=== PATIENT | male | born 1945 | race Caucasian/White ===

== ENCOUNTER → 2017-04-03 | Outpatient (CLI) | payer MEDICARE ==
--- NOTE | 2017-04-03 10:09 | US ---
EXAMINATION TYPE: US abdomen complete DATE OF EXAM: 04/03/2017 9:35 AM COMPARISON: NONE CLINICAL HISTORY: Periumbilical abd pain R10.33. NPO, colon resection in 2006 EXAM MEASUREMENTS: Liver Length: 12.7 cm Gallbladder Wall: 0.2 cm CHD: 0.4 cm Spleen: 11.9 cm Right Kidney: 11.5 x 4.9 x 5.6 cm Left Kidney: 11.2 x 4.7 x 4.7 cm Pancreas: Obscured by bowel gas Liver: wnl as visualized, limited by bowel gas Gallbladder: wnl Evidence for sonographic Up's sign: neg CBD: wnl Spleen: wnl Right Kidney: wnl Left Kidney: wnl Upper IVC: seen Abd Aorta: Proximal not seen due to overlying bowel gas IMPRESSION: 1. No acute process as visualized.
== END | disposition home or self-care (01) ==
LOC: RADUSWWP 08:45
PROVIDERS: ATTEND Family Medicine
DX: R10.33 Periumbilical pain (principal)
CPT/HCPCS: 76700

== ENCOUNTER → 2017-06-19 | Outpatient (CLI) | payer MEDICARE ==
[2017-06-19 10:53] LABS: Blood Urea Nitrogen 19 mg/dL (9-20); Non-African American GFR(MDRD) >60 (>60 ml/min/1.73 sqM)
--- NOTE | 2017-06-19 12:37 | CT ---
EXAMINATION TYPE: CT abdomen pelvis w con DATE OF EXAM: 06/19/2017 COMPARISON: Ultrasound abdomen 04/03/2017 HISTORY: Lower abd pain, history of colon CA with colon resection CT DLP: 775.1 mGycm Automated exposure control for dose reduction was used. TECHNIQUE: Helical acquisition of images from the lung bases through the pelvis have been completed. CONTRAST: Performed with Oral Contrast and with IV Contrast, patient injected with 100 mL of Omnipaque 300. FINDINGS: There is some pericardial calcification. Heart is borderline enlarged. LUNG BASES: No significant abnormality is appreciated. AORTA: No significant abnormality is appreciated. Inferior vena cava filter is noted incidentally in the infrarenal location. LIVER/GB: Liver shows low attenuation possibly due to hepatocellular disease or hepatic steatosis, ga llbladder is normal. PANCREAS: There is diffuse enlargement of the pancreatic duct. At the level of the body of the pancre as near its junction with the pancreatic head there is soft tissue attenuation and the caliber change of the pancreatic duct, some suggestion of reactive change in the surrounding fat. Ill-defined abnor mal soft tissue measures approximately 3.7 cm in greatest dimension. SPLEEN: No significant abnormality is seen. ADRENALS: No significant abnormality is seen. KIDNEYS: No significant abnormality is seen. REPRODUCTIVE ORGANS: The prostate is enlarged. BOWEL: Questionable abnormal soft tissue associated with the ascending aorta colon on axial image 38 , coronal image 34. Within the mesenteric fat there are ill-defined areas of increased attenuation pr esent. Small anterior abdominal wall hernia is noted incidentally. Suspect a left inguinal hernia con taining fat. Diverticular changes associated with the sigmoid colon. FREE AIR: No Free Air visible. ASCITES: None visible. PELVIC ADENOPATHY: None visualized. RETROPERITONEAL ADENOPATHY: No Retroperitoneal Adenopathy visible. URINARY BLADDER: Bladder wall thickening may be due to chronic outlet obstruction, correlate to excl ude cystitis. OSSEOUS STRUCTURES: No significant abnormality is seen. IMPRESSION: FINDINGS COMPATIBLE WITH PANCREATIC CARCINOMA, THERE MAY BE MESENTERIC SEEDING. Possible colonic mass or abnormal soft tissue related to pancreatic primary associated with the ascending colon.
== END | disposition home or self-care (01) ==
LOC: RADCTMAIN 10:20
PROVIDERS: ATTEND Surgery
DX: R10.9 Unspecified abdominal pain (principal)
CPT/HCPCS: 82565; 84520; 74177; 36415; Q9967

== ENCOUNTER → 2017-08-30 | Outpatient (CLI) | payer MEDICARE ==
--- NOTE | 2017-08-30 14:56 | CT ---
EXAMINATION TYPE: CT ChestAbdPelvis w con DATE OF EXAM: 08/30/2017 COMPARISON: CT abdomen pelvis 06/19/2017 HISTORY: Patient has no complaints at time of service. Follow up study for known pancreatic and wilfredo l CA. CT DLP: 635.8 mGycm Automated exposure control for dose reduction was used. CONTRAST: CT scan of the chest, abdomen and pelvis is performed with Oral Contrast and with IV Contrast, patien t injected with 100 mL of Omnipaque 300. FINDINGS: LUNGS: The lungs are grossly clear, there is no concerning parenchymal mass or nodule identified. Th ere is evidence of old granulomatous disease, calcified granuloma present in the left lower lobe subp leural location. There is no pleural effusion or pneumothorax seen. The tracheobronchial tree is pat ent. MEDIASTINUM: There are no greater than 1 cm hilar or mediastinal lymph nodes. No pericardial effusi on is seen. There are coronary artery calcifications present. AORTA: No significant abnormality is seen. OTHER: Port-A-Cath is present in the right pectoral region, distal tip of the catheter via the right jugular approach extends into the superior vena cava. There is a hiatal hernia. LIVER/GB: Stable PANCREAS: Similar appearance. Distal aspect shows pancreatic ductal dilatation, soft tissue mass is p resent in the body with some surrounding scirrhous reaction. SPLEEN: No significant abnormality is seen. ADRENALS: No significant abnormality is seen. KIDNEYS: No significant abnormality is seen. REPRODUCTIVE ORGANS: Prostate is enlarged. There is an inferior impression on the urinary bladder. BOWEL: The proximal transverse colon, descending colon shows no distention. Difficult to exclude muc osal serosal lesion. The mesenteric seeding changes have progressed somewhat in the interval, the lar gest mass anterior to the proximal transverse colon measures approximately 3 cm in size increased fro m 2.5 cm. There are additional areas of new or increased abnormal increased density within the mesent nicole. Postop changes are noted to the sigmoid colon as on prior exam. FREE AIR: No Free Air visible. ASCITES: None seen. RETROPERITONEAL ADENOPATHY: No retroperitoneal adenopathy is seen. LYMPH NODES: No greater than 1 cm abdominal or pelvic lymph nodes are appreciated. URINARY BLADDER: No significant abnormality is seen. PELVIC ADENOPATHY: None visualized. OSSEOUS STRUCTURES: No significant abnormality is seen. Inferior vena cava filter is noted. IMPRESSION: Progression of mesenteric seeding of patient's tumor.
== END | disposition home or self-care (01) ==
LOC: RADPROMAIN 07:53
PROVIDERS: ATTEND Internal Medicine Hematology & Oncology
DX: C25.0 Malignant neoplasm of head of pancreas (principal); Z88.5 Allergy status to narcotic agent
CPT/HCPCS: 71260; 74177; Q9967; J1642

== ENCOUNTER → 2018-02-28 | Outpatient (CLI) | payer MEDICARE ==
[2018-02-28 11:04] LABS: Blood Urea Nitrogen 21 mg/dL (9-20)
--- NOTE | 2018-02-28 13:48 | CT ---
EXAMINATION TYPE: CT abdomen pelvis w con DATE OF EXAM: 02/28/2018 COMPARISON: 08/30/2017 HISTORY: Follow up pancreatic cancer. CT DLP: 1085 mGycm CONTRAST: CT scan of the abdomen and pelvis is performed with Oral Contrast and with IV Contrast, patient injec malick with 100 mL of Isovue 300. FINDINGS: LUNG BASES-: No visible nodule. No infiltrate. LIVER/GB: No calcified gallstones. No space occupying hepatic lesion. Biliary tree is of normal ca liber. PANCREAS: Atrophic changes of the pancreas. Cystic dilatation of the pancreatic duct. Soft tissue den sity within the body of the pancreas appears smaller than on prior study and measures approximately 1 cm versus 1.9 cm previously. SPLEEN: No splenic enlargement. No lesion seen. ADRENALS: No nodule. No thickening. KIDNEYS/BLADDER: No hydronephrosis. No nephrolithiasis. No distinct renal mass. Urinary bladder g rossly unremarkable. BOWEL: Normal appendix. Normal bowel caliber. No inflammation. GENITAL ORGANS: No gross abnormality. LYMPH NODES: No greater than 1cm abdominal or pelvic lymph nodes are appreciated. AORTA: No significant abnormality. OSSEOUS STRUCTURES: No significant abnormality is seen. OTHER: Mesenteric nodules seen previously have significantly improved. There is mild nodularity ident ified right upper quadrant although significantly diminished from prior study. IVC filter is in place . IMPRESSION: 1. Marked reduction in mesenteric seeding seen previously. 2. Pancreatic body mass persists although appears to be smaller in size.
== END ==
LOC: RADPROMAIN 10:25
PROVIDERS: ATTEND Internal Medicine Hematology & Oncology
DX: Z03.89 Encounter for observation for other suspected diseases and conditions ruled out (principal); C25.0 Malignant neoplasm of head of pancreas; Z88.5 Allergy status to narcotic agent
CPT/HCPCS: 82565; 84520; 74177; J1642; Q9967

== ENCOUNTER → 2018-04-09 | Outpatient (CLI) | payer MEDICARE ==
[2018-04-09 11:08] LABS: Blood Urea Nitrogen 27 mg/dL (9-20)
--- NOTE | 2018-04-09 12:59 | CT ---
EXAMINATION TYPE: CT ChestAbdPelvis w con DATE OF EXAM: 04/09/2018 COMPARISON: 02/28/2018 HISTORY: Pancreatic cancer CT DLP: 1478 mGycm CONTRAST: CT scan of the chest, abdomen and pelvis is performed with Oral Contrast and with IV Contrast, patien t injected with 100 ml mL of Isovue 370. CT Chest: LUNGS: The lungs are clear and free of infiltrate or atelectasis. No pulmonary nodule or mass is det ected. No pleural effusion or CT evidence of interstitial lung disease. MEDIASTINUM: Thoracic aorta is of normal caliber. The heart is enlarged. No evidence for mediastin al mass or adenopathy. HILAR STRUCTURES: No evidence for mass. No hilar adenopathy is appreciated. OTHER: No significant abnormality. CONTRAST CT ABDOMEN AND PELVIS FINDINGS: LIVER/GB: No calcified gallstones. No space occupying hepatic lesion. Biliary tree is of normal ca liber. PANCREAS: Atrophic changes of the pancreas. Cystic dilatation of the pancreatic duct. Soft tissue den sity within the body of the pancreas does not redemonstrated at this time. No new lesions seen. SPLEEN: No splenic enlargement. No lesion seen. ADRENALS: No nodule. No thickening. KIDNEYS/BLADDER: No hydronephrosis. No nephrolithiasis. No disctinct renal mass. BOWEL: Normal appendix. Normal bowel caliber. No inflammation. GENITAL ORGANS: Prostate gland enlargement noted. LYMPH NODES: No greater than 1cm abdominal or pelvic lymph nodes are appreciated. AORTA: No significant abnormality. OSSEOUS STRUCTURES: No significant abnormality is seen. OTHER: Fat-containing left inguinal hernia. No evidence for mesenteric seeding. IVC filter. IMPRESSION: 1. Pancreatic body lesion is not reproduced on today's study. Atrophic changes of the pancreas with c ystic duct dilatation identified. 2. Otherwise stable examination.
== END | disposition home or self-care (01) ==
LOC: RADPROMAIN 10:17
PROVIDERS: ATTEND Internal Medicine Hematology & Oncology
DX: K82.8 Other specified diseases of gallbladder (principal); C25.0 Malignant neoplasm of head of pancreas; D69.59 Other secondary thrombocytopenia; I82.5Z9 Chronic embolism and thrombosis of unspecified deep veins of unspecified distal lower extremity; G89.3 Neoplasm related pain (acute) (chronic); Z88.6 Allergy status to analgesic agent
CPT/HCPCS: 82565; 84520; 86301; 71260; 74177; J1642; Q9967

== ENCOUNTER → 2018-11-25 | Outpatient (CLI) | payer MEDICARE ==
[2018-11-25 11:01] LABS: Blood Urea Nitrogen 23 mg/dL (9-20)
--- NOTE | 2018-11-25 13:42 | CT ---
EXAMINATION TYPE: CT ChestAbdPelvis w con DATE OF EXAM: 11/25/2018 COMPARISON: 06/19/2017 and 04/09/2018 HISTORY: pancreatic cancer observe for mets CT DLP: 767.60 mGycm. Automated Exposure Control for Dose Reduction was Utilized. CONTRAST: CT scan of the thorax, abdomen and pelvis is performed with IV Contrast, patient injected with 100 mL of Isovue 300. FINDINGS: LUNGS: The lungs are grossly clear, there is no concerning parenchymal mass or nodule identified. M inimal dependent atelectasis is noted. There is no pleural effusion or pneumothorax seen. The trache obronchial tree is patent. MEDIASTINUM: Right-sided Mediport terminates in the superior vena cava. There are no greater than 1 c m hilar or mediastinal lymph nodes. No pericardial effusion is seen. Multifocal calcification the p ericardium may relate to prior pericarditis. Fluid attenuation is seen within the posterior mediastin um just above herniated intra-abdominal fat through the widened diaphragmatic hiatus. Moderate sauer ry artery calcifications are seen. LIVER/GB: Although the liver is diffusely slightly hypoattenuated does not meet criteria for hepatic steatosis. No cholelithiasis. No focal hepatic lesion is seen. PANCREAS: There are vague areas of hypoattenuation within the pancreatic body near the pancreatic nec k at the site of caliber change of the markedly dilated main pancreatic duct with cystic spaces, the largest in the pancreatic tail measuring 4.6 cm. However the pancreatic primary neoplasm is not well- defined. There is no discernible interval growth from the prior where the pancreatic neoplasm is also not well-defined. The fat planes between the celiac axis and its branch vessels as in the pancreatic body are not clearly defined and there appears to be at least 180 degrees encasement of the superior mesenteric vein. Haziness is seen lateral to the superior mesenteric artery on series 3 image 60. Th is is similar to the prior and may represent adenopathy. SPLEEN: No significant abnormality is seen. ADRENALS: No significant abnormality is seen. KIDNEYS: No hydronephrosis. Kidneys enhance symmetrically. BOWEL: There is a colonic anastomotic site within the sigmoid colon without proximal dilatation to [place] ggest anastomotic stricture. Few sigmoid and descending colonic diverticula are seen without pericolo kulwinder fat stranding. Moderate amount retained stool is seen throughout the colon. Small bowel is nondil ated. GENITAL ORGANS: Prostate gland is enlarged and heterogenous containing few central zone calcification s and 5.9 cm in transverse dimension with impression upon the urinary bladder. LYMPH NODES: No greater than 1cm abdominal or pelvic lymph nodes are appreciated. OSSEOUS STRUCTURES: Minimal degenerative changes of the lumbar spine are noted. There is a mild compr ession deformity of the T7 vertebral body with approximately 20% vertebral body height loss unchanged from 04/09/2018. No new suspicious osseous lesions are seen. OTHER: Inferior vena cava filter is incidentally seen. Left inguinal canal is patulous. When compared to the exam of 08/30/2017 there is complete resolution of the previously seen peritonea l carcinomatosis. IMPRESSION: 1. The primary pancreatic neoplasm is ill-defined with only a focal area of heterogeneity in the panc reatic body near the pancreatic neck. Downstream main pancreatic ductal dilatation with persistent de velopment of cystic spaces is unchanged. 2. No evidence of recurrence of the previously seen peritoneal carcinomatosis. 3. Mild T7 vertebral body compression deformities unchanged from 04/09/2018. 4. Stable probable nonenlarged 9 mm short axis lymph node adjacent to the superior mesenteric artery.
== END | disposition home or self-care (01) ==
LOC: RADPROMAIN 10:18
PROVIDERS: ATTEND Internal Medicine Hematology & Oncology
DX: C25.0 Malignant neoplasm of head of pancreas (principal); Z88.8 Allergy status to other drugs, medicaments and biological substances
CPT/HCPCS: 82565; 84520; 71260; 74177; 36415; J1642; Q9967

== ENCOUNTER → 2019-02-10 | Outpatient (CLI) | payer MEDICARE ==
[2019-02-10 08:28] LABS: Blood Urea Nitrogen 22 mg/dL (9-20)
--- NOTE | 2019-02-10 12:53 | CT ---
EXAMINATION TYPE: CT ChestAbdPelvis w con DATE OF EXAM: 02/10/2019 COMPARISON: 11/25/2018 and 04/09/2018 HISTORY: 73-year-old male follow-up Pancreatic CA, observe for metastases. TECHNIQUE: Contiguous axial scanning of the chest, abdomen, and pelvis performed with IV Contrast, pa tient injected with 100 mL of Isovue 300. Delayed images through the kidneys were obtained. Coronal/s agittal reconstructions performed. CT DLP: 692.6 mGycm Automated exposure control for dose reduction was used. FINDINGS: Chest: Heart normal size without pericardial effusion. Scattered pericardial calcifications are unchanged an d could represent sequela of prior infection. Ectatic aortic root at 3.7 cm is unchanged. Ectatic ascending aorta 3.8 cm is unchanged. Conventional branching anatomy. Right anterior chest wall injection port. The catheter appears to be flipped superiorly in the recruitment internship al jugular vein, unchanged from prior. No thoracic lymphadenopathy by CT size criteria. *Some increased intermediate density in the right lower paraesophageal region measuring 1.9 cm versus 1.6 cm, previously. Stable patchy bibasilar densities, probably areas of atelectasis and scarring. *7 mm subpleural pulmonary nodule in the inferior lingula axial image 33 larger from 04/09/2018. Calci fied granuloma superior segment left lower lobe. ABDOMEN: No focal liver lesion or biliary duct dilatation. The splenic vein is persistently not well seen. Stable focal narrowing at the portal venous confluenc e, series 7 and axial image 20. There is gradually enlarging ill-defined soft tissue at the level of the pancreatic neck currently me asuring approximately 2.3 cm now abutting the undersurface of the celiac axis branches and continuing to extend along the superior aspect of the SMA. The previous soft tissue along the left lateral aspe ct of the SMA now measures 1 cm thick versus 8 mm, previously and now appears contiguous with the sof t tissue mass. Persistent upstream pancreatic ductal dilatation. Pancreatic tail cyst measures 4.5 cm, unchanged fro m 11/25/2018. Suspect some subtle soft tissue along the superior margin of the third portion of the duodenum measur ing 2.3 x 1.3 cm, larger from 11/25/2018 where it measured only 1.6 x 0.7 cm. Prominent but nonenlarged portacaval lymph node measures 9 mm versus 5 mm, previously. Adrenal glands, kidneys, and spleen appear within normal limits. An IVC filter is present. Normal appendix. No dilated small bowel, free fluid, or free air. Scattered mild stool. Oral contrast has progressed to the hepatic flexure. Mild diverticulosis along the left side of the colon. No pericolonic inflammatory change. A few retroperitoneal lymph nodes, aortocaval measuring 6 mm and left periaortic measuring 5 mm remai n nonenlarged. Some patchy soft tissue density in the anterior midline omentum measures 1.2 cm and is new in the int erval. PELVIS: Small 4 mm nodularity intra-abdominal fat anterior midline upper pelvis appears new, axial image 91. Heterogeneous and enlarged prostate gland measuring 5.5 cm wide. Bladder partially distended. Patulou s left inguinal canal. No abnormal fluid collection the pelvis or pelvic lymphadenopathy seen. BONES: Stable focal density left iliac bone probably incidental. Facet arthropathy lower lumbar spine. Mild inferior endplate deformity of T7 is unchanged. IMPRESSION: 1. ILL-DEFINED HYPODENSITY AT THE PANCREATIC NECK APPEARS SLIGHTLY MORE BULKY MEASURING 2.3 CM NOW AN D EXTENDS TO ABUT THE UNDERSURFACE OF THE CELIAC AXIS AND THE SUPERIOR SURFACE OF THE SMA. IT IS NOW CONTIGUOUS WITH THE PREVIOUS SOFT TISSUE THICKENING ALONG THE LEFT LATERAL ASPECT OF THE SMA WHICH NO W MEASURES 1 CM THICK VERSUS 8 MM, PREVIOUSLY. 2. ADDITIONAL FINDINGS WHICH SUGGEST DISEASE PROGRESSION INCLUDE NEW/INCREASING SOFT TISSUE NODULARIT Y JUST SUPERIOR TO THE THIRD PORTION OF THE DUODENUM (2.3 CM VERSUS 1.6 CM, PREVIOUSLY), 1.2 CM PATCH Y SOFT TISSUE ALONG THE MIDLINE OMENTUM (SUSPICIOUS FOR EARLY RECURRENCE OF PERITONEAL CARCINOMATOSIS ), AND A NEW 4 MM PERITONEAL DEPOSIT ALONG THE MIDLINE ANTERIOR UPPER PELVIS. 3. EQUIVOCAL FINDINGS IN THE THORAX FOR DISEASE PROGRESSION INCLUDE EITHER SOME ILL-DEFINED EDEMA JOSEPH TATA SOFT TISSUE DEPOSIT ALONG THE LOWER RIGHT PARAESOPHAGEAL REGION (1.9 CM NOW VERSUS 1.6 CM, PREVIO USLY), AND A 7 MM INFERIOR LINGULAR PULMONARY NODULE WHICH IS LARGER. BOTH OF THESE FINDINGS SHOULD B E FOLLOWED METASTATIC DISEASE IN THE THORAX IS NOT EXCLUDED AT THIS TIME. 4. STABLE FOCAL NARROWING AT THE PORTAL VENOUS CONFLUENCE. THE SPLENIC VEIN REMAINS POORLY VISUALIZED . 5. PROSTATOMEGALY (5.5 CM WIDE).
== END | disposition home or self-care (01) ==
LOC: RADPROMAIN 07:29
PROVIDERS: ATTEND Internal Medicine Hematology & Oncology
DX: C25.0 Malignant neoplasm of head of pancreas (principal); G89.3 Neoplasm related pain (acute) (chronic); G47.01 Insomnia due to medical condition; I82.5Z9 Chronic embolism and thrombosis of unspecified deep veins of unspecified distal lower extremity; Z88.5 Allergy status to narcotic agent
CPT/HCPCS: 82565; 84520; 86301; 71260; 74177; J1642; Q9967

== ENCOUNTER 2019-03-01 09:09 | Emergency (ER) | payer MEDICARE ==
[2019-03-01 09:21] VITALS: TEMP 98
[2019-03-01] MEDS ORDERED: SODIUM CHLORIDE 0.9% 1,000 ML IV STA ×2 (09:34)
--- NOTE | 2019-03-01 10:03 | ED ---
Male Urogenital HPI - General Chief complaint: Urogenital Stated complaint: unable to urinate Time Seen by Provider: 03/01/19 09:12 Source: patient, family, RN notes reviewed Mode of arrival: ambulatory Limitations: no limitations - History of Present Illness Initial comments: This is a 73-year-old male with a history of recently diagnosed pancreatic ca ncer who did receive chemotherapy this past week for the first time who states she's had 2 days of difficulty urinating with small was a urine come out. He complains some suprapubic pain no fevers chills nausea vomiting sweats he has had some constipation also but that seems oh got better. He also states she's had decreased oral intake. No fevers chills sweats or other symptoms reported no cough. - Related Data Home Medications Medication Instructions Recorded Confirmed Atenolol 25 mg PO BID 08/09/15 03/01/19 Apixaban [Eliquis] 5 mg PO BID 03/01/19 03/01/19 Lipase/Protease/Amylase [Jyotsna Simms 2 - 3 cap PO AC-TID 03/01/19 03/01/19 24,000 Units Capsule] Lisinopril [Zestril] 10 mg PO DAILY 03/01/19 03/01/19 Mirtazapine [Remeron] 15 mg PO HS 03/01/19 03/01/19 oxyCODONE-APAP 5-325MG [Percocet 1 tab PO QID PRN 03/01/19 03/01/19 5-325 mg] Allergies Allergy/AdvReac Type Severity Reaction Status Date / Time hydrocodone AdvReac nightmares Verified 03/01/19 09:58 Review of Systems ROS Statement: Those systems with pertinent positive or pertinent negative responses have been documented in the HPI. ROS Other: All systems not noted in ROS Statement are negative. Past Medical History Past Medical History: Atrial Fibrillation, Cancer, Chest Pain / Angina, Deep Vein Thrombosis (DVT), Hyperlipidemia, Hypertension, Sleep Apnea/CPAP/BIPAP Additional Past Medical History / Comment(s): 08/22/15 Pt admitted to floor s/p hardware removal and total L knee arthroplasty. Other HX: hx angina from stress, afib, ventricular ectopy, compression sock on left leg for circulation problem, hx dvt let leg, hx colon cancer with sx. History of Any Multi-Drug Resistant Organisms: None Reported Past Surgical History: Bowel Resection, Joint Replacement, Orthopedic Surgery, Tonsillectomy Additional Past Surgical History / Comment(s): 08/22/15 Hardware removal (1 screw) and total L knee arthroscopy. Other SX: sridevi filter, ORIF left leg after injury, Past Anesthesia/Blood Transfusion Reactions: No Reported Reaction Additional Past Anesthesia/Blood Transfusion Reaction / Comment(s): Pt has never recieved blood. Past Psychological History: No Psychological Hx Reported Smoking Status: Former smoker Past Alcohol Use History: None Reported Past Drug Use History: None Reported - Past Family History Brother(s) Family Medical History: Cancer Additional Family Medical History / Comment(s): Pt has 3 siblings with colon cancer. Sister(s) Family Medical History: Cancer Mother Family Medical History: Coronary Artery Disease (CAD) Additional Family Medical History / Comment(s): Mother at age 73yrs Father Family Medical History: COPD Additional Family Medical History / Comment(s): Father had emphysema. He was a smoker. He at age 68yrs. General Exam - General Exam Comments Initial Comments: This is a well-developed well-nourished awake alert oriented times 3 male Limitations: no limitations General appearance: alert, in distress Head exam: Present: atraumatic, normocephalic, normal inspection Eye exam: Present: normal appearance, PERRL, EOMI. Absent: scleral icterus, conjunctival injection, periorbital swelling ENT exam: Present: mucous membranes dry Neck exam: Present: normal inspection. Absent: tenderness, meningismus, lymphadenopathy Respiratory exam: Present: normal lung sounds bilaterally. Absent: respiratory distress, wheezes, rales, rhonchi, stridor Cardiovascular Exam: Present: regular rate, normal rhythm, normal heart sounds. Absent: systolic murmur, diastolic murmur, rubs, gallop, clicks GI/Abdominal exam: Present: soft, tenderness, normal bowel sounds, other (Distended bladder). Absent: distended, guarding, rebound, rigid exam: Present: normal inspection Extremities exam: Present: normal inspection, full ROM, normal capillary refill. Absent: tenderness, pedal edema, joint swelling, calf tenderness Back exam: Present: normal inspection Neurological exam: Present: alert, oriented X3, CN II-XII intact Psychiatric exam: Present: normal affect, normal mood Skin exam: Present: warm, dry, intact, normal color. Absent: rash Course Vital Signs 03/01/19 09:12 Temperature 98.0 F Pulse Rate 103 H Respiratory 18 Rate Blood Pressure 99/68 O2 Sat by Pulse 98 Oximetry - Reevaluation(s) Reevaluation #1: 03/01/19 10:03 The patient did have plus cc of urine on bladder scan he did receive a Tang catheter by staff dark-colored sharon urine noted clear patient does have some improvement in his pain at this time. Medical Decision Making - Medical Decision Making I did discuss findings with the patient family patient will be discharged she will be discharged with a Tang catheter in place to be taken out in 1-2 days he will follow-up with his doctor he is also encourage increase oral fluids as he does demonstrate evidence of dehydration. We did discuss postchemotherapy things to watch for. He's had no fevers chills sweats - Lab Data Result diagrams: 03/01/19 10:00 03/01/19 10:00 Lab Results 03/01/19 03/01/19 03/01/19 Range/Units 10:00 10:00 10:00 WBC 8.6 (3.8-10.6) k/uL RBC 4.60 (4.30-5.90) m/uL Hgb 14.5 (13.0-17.5) gm/dL Hct 42.6 (39.0-53.0) % MCV 92.5 (80.0-100.0) fL MCH 31.5 (25.0-35.0) pg MCHC 34.1 (31.0-37.0) g/dL RDW 12.5 (11.5-15.5) % Plt Count 166 (150-450) k/uL Neutrophils % 87 % Lymphocytes % 9 % Monocytes % 2 % Eosinophils % 1 % Basophils % 0 % Neutrophils # 7.4 (1.3-7.7) k/uL Lymphocytes # 0.8 L (1.0-4.8) k/uL Monocytes # 0.2 (0-1.0) k/uL Eosinophils # 0.1 (0-0.7) k/uL Basophils # 0.0 (0-0.2) k/uL Sodium 136 L (137-145) mmol/L Potassium 4.4 (3.5-5.1) mmol/L Chloride 103 (98-107) mmol/L Carbon Dioxide 23 (22-30) mmol/L Anion Gap 10 mmol/L BUN 22 H (9-20) mg/dL Creatinine 0.86 (0.66-1.25) mg/dL Est GFR (CKD-EPI)AfAm >90 (>60 ml/min/1.73 sqM) Est GFR (CKD-EPI)NonAf 87 (>60 ml/min/1.73 sqM) Glucose 126 H (74-99) mg/dL Calcium 9.3 (8.4-10.2) mg/dL Magnesium 1.9 (1.6-2.3) mg/dL Total Bilirubin 1.0 (0.2-1.3) mg/dL AST 19 (17-59) U/L ALT 30 (21-72) U/L Alkaline Phosphatase 77 (38-126) U/L Total Protein 6.8 (6.3-8.2) g/dL Albumin 4.1 (3.5-5.0) g/dL Urine Color Yellow Urine Appearance Clear (Clear) Urine pH 6.0 (5.0-8.0) Ur Specific [place] 1.023 (1.001-1.035) Urine Protein Trace H (Negative) Urine Glucose (UA) Negative (Negative) Urine Ketones Trace H (Negative) Urine Blood Negative (Negative) Urine Nitrite Negative (Negative) Urine Bilirubin Negative (Negative) Urine Urobilinogen <2.0 (<2.0) mg/dL Ur Leukocyte Esterase Negative (Negative) Disposition Clinical Impression: Acute urinary retention, Dehydration, History of pancreatic cancer, Tang catheter in place Disposition: HOME SELF-CARE Condition: Good Instructions (If sedation given, give patient instructions): Urethral Stent Placement (DC), Dehydration (ED) Additional Instructions: Tang out in 1-2 days Is patient prescribed a controlled substance at d/c from ED?: No Referrals: Handy Scherer MD [Primary Care Provider] - 1-2 days
[2019-03-01 10:10] LABS: Basophils % (A) 0 %; Eosinophils # (A) 0.1 k/uL (0-0.7); Eosinophils % (A) 1 %; HCT 42.6 % (39.0-53.0); HGB 14.5 gm/dL (13.0-17.5); Lymphocytes # (A) 0.8 k/uL (1.0-4.8); Lymphocytes % (A) 9 %; MCH 31.5 pg (25.0-35.0); MCHC 34.1 g/dL (31.0-37.0); MCV 92.5 fL (80.0-100.0); Mean Platelet Volume 8.1; Monocytes # (A) 0.2 k/uL (0-1.0); Monocytes % (A) 2 %; Neutrophils # (A) 7.4 k/uL (1.3-7.7); Neutrophils % (A) 87 %; Platelet Count 166 k/uL (150-450); RDW 12.5 % (11.5-15.5); WBC 8.6 k/uL (3.8-10.6)
[2019-03-01 10:12] LABS: Appearance,Urine Clear (Clear); Bilirubin,Urine Negative (Negative); Blood,Urine Negative (Negative); Color,Urine Yellow; Glucose,Urine (UA) Negative (Negative); Ketones,Urine Trace (Negative); Leukocyte Esterase,Urine Negative (Negative); Nitrite,Urine Negative (Negative); Protein,Urine Trace (Negative); Specific Gravity,Urine 1.023 (1.001-1.035); Urobilinogen,Urine <2.0 mg/dL (<2.0)
[2019-03-01 10:22] LABS: ALT 30 U/L (21-72); AST 19 U/L (17-59); Albumin 4.1 g/dL (3.5-5.0); Alkaline Phosphatase 77 U/L (38-126); Anion Gap 10 mmol/L; Blood Urea Nitrogen 22 mg/dL (9-20); Calcium 9.3 mg/dL (8.4-10.2); Carbon Dioxide 23 mmol/L (22-30); Chloride 103 mmol/L (98-107); Glucose 126 mg/dL (74-99); Magnesium 1.9 mg/dL (1.6-2.3); Potassium 4.4 mmol/L (3.5-5.1); Sodium 136 mmol/L (137-145); Total Protein 6.8 g/dL (6.3-8.2)
[2019-03-01 11:41] VITALS: BP 122/72; PULSE 84; RESP 16
== END 2019-03-01 11:46 | disposition home or self-care (01) ==
LOC: EC 09:09
DX: E86.0 Dehydration (principal); R33.9 Retention of urine, unspecified; N32.89 Other specified disorders of bladder; Z85.07 Personal history of malignant neoplasm of pancreas; R10.30 Lower abdominal pain, unspecified; K59.00 Constipation, unspecified; R63.8 Other symptoms and signs concerning food and fluid intake; I48.91 Unspecified atrial fibrillation; I10 Essential (primary) hypertension; G47.30 Sleep apnea, unspecified; Z87.891 Personal history of nicotine dependence; Z88.5 Allergy status to narcotic agent; Z79.01 Long term (current) use of anticoagulants; Z79.899 Other long term (current) drug therapy; Z85.038 Personal history of other malignant neoplasm of large intestine; Z92.21 Personal history of antineoplastic chemotherapy; Z86.718 Personal history of other venous thrombosis and embolism; Z90.49 Acquired absence of other specified parts of digestive tract; Z99.89 Dependence on other enabling machines and devices
CPT/HCPCS: 36415; 51702; 51798; 80053; 81003; 83735; 85025; 96360; 96361; 99284